=== PATIENT | male | born 1930 | race Caucasian/White ===

== ENCOUNTER 2017-05-09 06:18 | Day surgery (SDC) | payer MEDICARE, BC ==
--- NOTE | 2017-05-06 22:12 | HP ---
CC: Dr. Jose Mullen * ADMITTING HISTORY AND PHYSICAL: DATE OF ADMISSION: 05/09/17 AGE: 87 years, male. ADMITTING DIAGNOSES: 1. Microscopic hematuria. 2. Bladder lesions. PLANNED PROCEDURE: Cystoscopy, excision biopsy of bladder lesions. SURGEON: Teodoro Vásquez MD ADMITTING HISTORY AND PHYSICAL: Jose Puente is an 87-year-old former smoker who had been evaluated a few weeks ago by Dr. Mullen for backache and pressure in the bladder. Urine cytology had been sent, which was suspicious for transitional cell carcinoma. Urine culture was negative. He was then referred and a cystoscopy in my office revealed extensive area of hyperemic mucosa encompassing the entire posterior bladder wall on the right side suspicious for carcinoma in situ. PAST MEDICAL HISTORY: Significant for hypertension. PAST SURGICAL HISTORY: Significant for right shoulder replacement in 2004, appendectomy, inguinal hernia surgery, and left hand surgery for Dupuytren's contracture. MEDICATIONS ON ADMISSION: Losartan 25 a day and various supplements. ALLERGIES: No known drug allergies. FAMILY HISTORY: Negative for bladder or prostate cancer. SOCIAL HISTORY: Smoking history - he is a former smoker who quit 35 years ago and had a 30-pack year smoking history prior to that. PHYSICAL EXAMINATION GENERAL: Reveals a pleasant elderly gentleman who appears fairly vigorous and in good health. VITAL SIGNS: Blood pressure is 140/90; pulse 80 per minute, regular; oxygen saturation 97% on room air. LUNGS: Clear bilaterally. CARDIOVASCULAR: Regular rate and rhythm. S1, S2. ABDOMEN: Soft without masses. IMPRESSION: An 87-year-old former smoker with an appearance of the bladder suspicious for carcinoma in situ. Planned procedure is cystoscopy, excision biopsy of bladder lesions. [id number]/[facility] #: [id number] [facility]
[~2017-05-09 06:18] MED LIST: Buffered Lidocaine 0.9% SYRIN* 5 ML/SYR SYRINGE INTRADERM ONE; Buffered Lidocaine 0.9% SYRIN* 5 ML/SYR SYRINGE ONE; cefTRIAXone(*) 2 GM ADDV.VIAL IVPB ONE
[2017-05-09] MEDS ORDERED: Midazolam* 1 MG/ML 2 ML VIAL (2 MG) ONE (07:25)
[2017-05-09] MEDS ORDERED: fentaNYL* 50 MCG/ML 2 ML VIAL (100 MCG VIAL) ONE (07:25)
[2017-05-09] MEDS ORDERED: fentaNYL* 50 MCG/ML 2 ML VIAL (100 MCG VIAL) IV PRN (08:27)
[2017-05-09] MEDS ORDERED: Ondansetron INJ* 2 MG/ML VIAL IV PRN (08:27)
[2017-05-09] MEDS ORDERED: Acetaminophen TAB* 325 MG PO PRN (08:27)
[2017-05-09] MEDS ORDERED: PROCHLORPERAZINE INJ 5 MG/ML 2 ML VIAL IV PRN (08:27)
[2017-05-09] MEDS ORDERED: HYDROcodone/ACETAMIN 5-325 MG* 1 TAB PO PRN (08:27)
[2017-05-09] MEDS ORDERED: EPHEDrine (Pressors)* 50 MG/ML VIAL ONE (08:29)
[2017-05-09] MEDS ORDERED: Lidocaine 2% PF * 5 ML VIAL ONE (08:29)
[2017-05-09] MEDS ORDERED: Dexamethasone IV* 4 MG/ML 1 ML (4 MG) ONE (08:29)
[2017-05-09] MEDS ORDERED: Propofol* 10 MG/ML 20 ML BTL IV PUSH ONE (08:29)
[2017-05-09] MEDS ORDERED: Furosemide IV* 10 MG/ML 2 ML VIAL (20 MG) ONE (08:29)
[2017-05-09] MEDS ORDERED: Famotidine IV* 10 MG/ML 2 ML (20 mg) ONE (08:29)
[2017-05-09] MEDS ORDERED: oxyCODONE/Acetamin 5/325 MG* TAB PO PRN ×4 (09:19→11:30)
[2017-05-09] MEDS ORDERED: mitoMYcin PWD* 40 MG in Sterile Water for Inj* 40 ML IRRIGATION ONE (10:00)
[2017-05-09] MEDS ORDERED: Lidocaine 2% JELLY* 6 ML JELLY TOPICAL ONE (10:16)
[2017-05-09] MEDS ORDERED: Losartan TAB* 25 MG PO ONE (12:00)
[2017-05-09 13:41] VITALS: BP 163/97
--- NOTE | 2017-05-10 03:44 | OP ---
CC: Jose Simpson MD * DATE OF OPERATION: 05/09/17 - [facility] DATE OF : [birth year] - AGE/SEX: 87 years, male. SURGEON: Teodoro Vásquez MD ANESTHESIOLOGIST: Dr. Pelaez. ANESTHESIA: General. PRE-OP DIAGNOSIS: Bladder lesions. POST-OP DIAGNOSIS: Bladder lesions. OPERATIVE PROCEDURE: Cystoscopy, excision biopsy, then fulguration of multiple bladder lesions (4 to 5 cm). COMPLICATIONS: None. POSTOPERATIVE CONDITION: Stable. BLOOD LOSS: Minimal. OPERATIVE FINDINGS: Multiple areas of thickened, raised, hyperemic mucosa encompassing lower half of the urinary bladder suspicious for diffuse carcinoma in situ. INDICATION: Jose Puente Junior is an 87-year-old gentleman who was evaluated and on office cystoscopy was noted to have the above-mentioned findings. These are suspicious for diffuse carcinoma in situ and he is now being brought in for excision biopsies and fulguration. DESCRIPTION OF PROCEDURE: After induction of general anesthesia, the patient was placed in dorsal lithotomy position. Sequential compression devices were in place and functioning. Initial cystoscopy revealed normal-appearing urethra , mild to moderately enlarged prostate and the above findings as described in the urinary bladder. There was no evidence of any papillary tumors. Extensive bladder biopsies were carried out encompassing large part of the involved mucosa and sent for histopathology. Using the resectoscope, all of the areas where the mucosa had been removed were carefully fulgurated. At the end of the procedure, hemostasis appeared satisfactory and there was no evidence of bladder perforation. A 20-English Ceballos was placed for temporary bladder drainage. The patient tolerated the procedure satisfactorily and was transferred back to the recovery area in stable condition. [id number]/[facility] #: [id number] [facility]
== END 2017-05-09 13:39 | disposition home or self-care (01) ==
LOC: OR 06:18
PROVIDERS: ATTEND Urology
DX: D09.0 Carcinoma in situ of bladder (principal); R31.21 Asymptomatic microscopic hematuria; Z87.891 Personal history of nicotine dependence; I10 Essential (primary) hypertension; I49.3 Ventricular premature depolarization
CPT/HCPCS: 88305; A9270-GY; J0696; J1100; J1940; J2250; J2704; J3010; J9280

== ENCOUNTER 2017-12-08 08:08 | Day surgery (SDC) | payer MEDICARE, BC ==
--- NOTE | 2017-11-24 12:32 | HP ---
CC: Dr. Simpson * ADMITTING HISTORY AND PHYSICAL: DATE OF ADMISSION: 12/03/17 ADMITTING DIAGNOSES: 1. Bladder cancer. 2. Hematuria. PLANNED PROCEDURE: Cystoscopy, transurethral resection of bladder lesions, right stent insertion. SURGEON: Dr. Vásquez. 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 This was followed by intravesical BCG treatments in my office. Subsequent cystoscopy earlier this month revealed what appeared to be multiple areas of recurrent transitional cell neoplasm or carcinoma in situ including one area directly above the right orifice. A CT urogram did not reveal any hydronephrosis and he is now being brought in for transurethral resection of these lesions and right stent insertion. He has an extensive smoking history, although he quit over 30 years ago. PAST MEDICAL HISTORY: Significant for: 1. Bladder carcinoma in situ. 2. Hypertension. PAST SURGICAL HISTORY: Significant for bladder biopsies in 2016, right shoulder replacement in 2004, inguinal hernia surgery, appendectomy, left hand surgery. MEDICATIONS ON ADMISSION: Losartan 25 mg a day. ALLERGIES: No known drug allergies. SOCIAL HISTORY: Smoking history, he is a former smoker with about a 30-pack- year smoking history who quit about 35 years ago. PHYSICAL EXAMINATION GENERAL: Reveals a very pleasant, healthy-appearing, elderly gentleman who appears younger than his stated age. VITAL SIGNS: Blood pressure is 134/80, pulse 76 per minute and regular, oxygen saturation 95% on room air. LUNGS: Clear bilaterally. CARDIOVASCULAR: Regular rate and rhythm. S1, S2. ABDOMEN: Soft without masses. IMPRESSION: An 87-year-old former smoker with recurrent bladder tumors. PLAN: Planned procedure is transurethral resection of bladder lesions and right stent insertion. [id number]/[facility] #: [id number] [facility]
[~2017-12-08 08:08] MED LIST changes: -Buffered Lidocaine 0.9% SYRIN* 5 ML/SYR SYRINGE ONE; +Dexamethasone IV* 4 MG/ML 1 ML (4 MG) IV SLOW PU ONE; +Famotidine IV* 10 MG/ML 2 ML (20 mg) IV ONE; -cefTRIAXone(*) 2 GM ADDV.VIAL IVPB ONE
[2017-12-08] MEDS ORDERED: Dexamethasone IV* 4 MG/ML 1 ML (4 MG) ONE (08:21)
[2017-12-08] MEDS ORDERED: Famotidine IV* 10 MG/ML 2 ML (20 mg) ONE (08:21)
[2017-12-08] MEDS ORDERED: cefTRIAXone(*) 2 GM ADDV.VIAL IVPB ONE (08:21)
[2017-12-08] MEDS ORDERED: Iohexol 180 (CONTRAST) 10 ML SDV IV ONE (10:43)
[2017-12-08] MEDS ORDERED: fentaNYL* 50 MCG/ML 2 ML VIAL (100 MCG VIAL) IV PRN (10:52)
[2017-12-08] MEDS ORDERED: DiMENhydriNATE IV* 50 MG/ML VIAL IV PUSH PRN (10:52)
[2017-12-08] MEDS ORDERED: Naloxone* 0.4 MG/ML 1 ML VIAL IV PRN (10:52)
[2017-12-08] MEDS ORDERED: Propofol* 10 MG/ML 20 ML BTL IV PUSH ONE (10:59)
[2017-12-08] MEDS ORDERED: Lidocaine 2% PF * 5 ML VIAL ONE (10:59)
[2017-12-08] MEDS ORDERED: fentaNYL* 50 MCG/ML 2 ML VIAL (100 MCG VIAL) ONE (10:59)
--- NOTE | 2017-12-08 13:17 | RAD ---
CPT II Codes: 6045F INDICATION: Right ureteral stent placement. Approximately 7 seconds of fluoroscopy time was used. Using usual aseptic technique and lidocaine as local anesthetic a right-sided ureteral stent was placed. 7 spot images were obtained. IMPRESSION: Successful placement of a right-sided ureteral stent under fluoroscopic guidance.
[2017-12-08 13:25] VITALS: BP 182/76
--- NOTE | 2017-12-09 02:16 | OP ---
CC: Dr. Simpson * DATE OF OPERATION: 12/08/17 - [facility] DATE OF : [birth year] SURGEON: Miguel Chatman MD ANESTHESIOLOGIST: Jones Escalona MD ANESTHESIA: General. 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 POST-OP DIAGNOSIS: History of carcinoma in situ of the bladder, pending pathology. OPERATIVE PROCEDURE: 1. Cystoscopy. 2. Right retrograde pyelography and placement of right ureteral stent (6 Bulgarian ). 3. Transurethral resection of bladder lesions (right trigone and right base of bladder). INDICATIONS: Mr. 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 He was then treated with a full course of intravesical BCG. Followup cystoscopy showed multiple areas of hyperemia of the right base of the bladder and the right trigone adjacent to the right ureteral orifice, suspicious for recurrence of the carcinoma in situ. CT urogram showed normal upper tracts. Because of the above history and finding, he was admitted for the above procedure. Because of the proximity of the right ureteral orifice to the lesion, a right stent is planned to be placed. PATHOLOGY AT CYSTOSCOPY: The penile and bulbar urethrae looked normal. The prostatic urethra measured about 2.5 cm in length and there was moderate degree of obstruction by prostate enlargement. Examination of the bladder showed normal left trigone and left ureteral orifice. There was hyperemia and irregularity of the mucosa involving the right trigone, the right bladder neck, and the areas adjacent to the scarring in the right base of the bladder from his previous surgeries. There were no papillary lesions seen. Upon right retrograde pyelography, the right ureter and the collecting systems looked normal. There were no abnormal filling defects noted. DESCRIPTION OF PROCEDURE: After successful general anesthesia, the patient was placed in the lithotomy position and was prepped and draped for a cystoscopy. Cystoscopy was performed. The bladder was carefully inspected and above findings were noted. It was decided to start with placement of a ureteral stent. A size 5-Bulgarian open- ended catheter was positioned in the distal ureter over a guidewire. Retrograde pyelography was performed demonstrating the ureter and the collecting system and showing no abnormalities or abnormal filling defects. A 6-Bulgarian stent was then placed with the proximal end coiling in the renal pelvis and the distal end coiling inside the bladder. The cystoscope was then removed and resectoscope was introduced inside the bladder. The hyperemic areas were resected down to muscle. The sites of the resection were fulgurated with a coagulation current. The resected tissue was then evacuated and sent for pathology. The Rt orifice did not need to be resected. Additional fulguration was carried cauterizing all the visualized hyperemic areas that were noted and not resected. At the completion of the procedure, there were no residual suspicious lesions seen. There was very good hemostasis. There was no bladder perforation. The stent was still in good position. The resectoscope was then removed and a size 18-Bulgarian Ceballos catheter was passed inside the bladder and balloon inflated with 10 cc of water. The patient tolerated the procedure well and left the operating room in good condition. The plan is to keep the stent in place for 2 to 3 weeks, it will be removed in the office under local anesthesia. [id number]/[facility] #: [id number] [facility]
== END 2017-12-08 13:38 | disposition home or self-care (01) ==
LOC: OR 08:08
PROVIDERS: ATTEND Urology
DX: D09.0 Carcinoma in situ of bladder (principal); R31.9 Hematuria, unspecified; I10 Essential (primary) hypertension; Z87.891 Personal history of nicotine dependence; D64.9 Anemia, unspecified
CPT/HCPCS: 74420; 88305; C1876; J0696; J1100; J2704; J3010